=== PATIENT | male | born 1980 | race Caucasian/White ===

== ENCOUNTER 2018-01-02 16:18 | Emergency (ER) | payer MEDICAID, SELFPAY ==
[2018-01-02 16:19] VITALS: BP 147/106; PULSE 103; RESP 16; TEMP 36.7; O2SAT 98; BMI 38.0
--- NOTE | 2018-01-02 16:31 | RAD_ITS ---
STUDY: X-RAY - LUMBAR SPINE REASON FOR EXAM: Male, 37 years old. Pain after fall TECHNIQUE: Three view(s) of the lumbar spine were obtained. COMPARISON: None FINDINGS: Normal lumbar lordosis. There is no significant scoliosis. There is normal alignment of the vertebrae. The vertebral bodies show no significant abnormalities. Vertebral body heights are maintained. There are no significant disc abnormalities. The soft tissues are unremarkable. RAD/Lumbar Spine 2 or 3 Views IMPRESSION: No acute abnormalities are seen in the lumbar spine. There are no compression fractures. Electronically Signed: Delia Escudero MD at 20:34 EST Tel Direct: [phone], Service support ,
--- NOTE | 2018-01-02 16:32 | RAD_ITS ---
STUDY: X-RAY - SACRUM/COCCYX REASON FOR EXAM: Male, 37 years old. Pain status post fall TECHNIQUE: 4 view(s) of the sacrum and coccyx were obtained. COMPARISON: None. FINDINGS: Normal bilateral sacroiliac joints. Normal visualized sacral ala and fused sacral bodies. Normal sacrococcygeal junction with a normal angulation. Normal coccygeal segments. There is visualized mild degenerative changes in the lower lumbar spine. The presacral soft tissue structures are unremarkable. RAD/Sacrum-Coccyx min 2 Views IMPRESSION: Normal x-rays of the sacrum and coccyx. Electronically Signed: Keerthi Hodges MD at 21:28 EST Tel , Service support ,
[2018-01-02] MEDS: Ketorolac 30 MG/ML Syringe 60 MG IM (16:37)
--- NOTE | 2018-01-02 17:00 | ED.DCSUM_ITS ---
- ER Visit Summary Date of Service: 01/02/18 Chief Complaint: Back pain History of Present Illness: The patient is a [address] Dia. He reports that yesterday he slipped and fell. He landed on his buttocks. Reports that he has a sharp pain in his lower back that is 10 out of 10 with sitting and standing from a sitting position. It is 7 out of 10 when he is standing. There is no relation to his legs. No numbness or weakness in his legs. No problems with his bowels or his bladder. No groin numbness. He denies any blow to the head or loss of consciousness. He denies any other injuries. Physical Examination: Vitals: Stable. Afebrile. General: A&O x 3. NAD. Cardiovascular exam: Regular rate and rhythm, no murmur, rub or gallop. Respiratory exam: Clear to auscultation bilaterally. No wheezes or stridor. Abdominal exam: Soft, nontender, nondistended, normal bowel sounds. No peritoneal signs. Back: Diffuse moderate tenderness to palpation over the lumbar spine and the paraspinous musculature in the lumbar region. No point tenderness. Negative straight leg bilaterally. 5/5 DF, PF, EHL bilaterally. Normal sensation to light touch throughout. Extremity: No clubbing, cyanosis, or edema. Test Results: X-rays of his LS spine and sacrum show no acute disease. Emergency Department Course and Treatment: Patient was treated with Toradol and is resting comfortably. Treatment Plan: An [facility] report was obtained which shows only had 2 prescriptions for opiates in the past year. He will be discharged with naproxen and [employer]. Instructed to follow-up Dr. Dia in 1 week if not improving. Return to the emergency department for any worsening symptoms. Disposition: To home in improved and stable condition. Impression: 1. Coccygeal contusion. 2. Low back pain, acute. 3. Fall. This note was generated with [employer] dictation software. It may contain incorrect words, spelling, and punctuation that were not noted in review of the chart prior to signing ED Disposition - Plan for ED Patient: Disposition: Home or Assisted Living Chief Complaint: Back Instructions: ED Contusion Sacrum Coccyx Prescriptions: Hydrocodone Bitart/Apap 5-325 [[employer] 5/325] 1 - 2 tablet PO Q4H PRN PRN 3 Days # 20 tablet PRN Reason: Pain Naproxen [Naprosyn] 500 mg PO BID #20 tablet Referrals: Lupillo Dia MD [Primary Care Provider] - 1 Week if not improving
[2018-01-02 17:10] VITALS: BP 140/89; PULSE 79; RESP 16; O2SAT 100
--- NOTE | 2018-01-02 17:10 | ED.RN ---
THIS NURSE REVIEWED D/C INSTRUCTIONS WITH PT. PT VERBALIZED UNDERSTANDING OF INSTRUCTIONS. PT DENIES FURTHER NEEDS OR QUESTIONS AT THIS TIME. PT AMBULATES FROM ROOM ON OWN WITHOUT ASSISTANCE FROM STAFF
== END 2018-01-02 17:12 | disposition home or self-care (01) ==
LOC: ED 16:42
PROVIDERS: Emergency Provider Emergency Medicine; Family Provider Family Medicine; PCP Family Medicine
DX: S30.0XXA Contusion of lower back and pelvis, initial encounter (principal); M54.5 Low back pain; W01.0XXA Fall on same level from slipping, tripping and stumbling without subsequent striking against object, initial encounter; Y93.9 Activity, unspecified; Y92.9 Unspecified place or not applicable; Z86.711 Personal history of pulmonary embolism; I83.90 Asymptomatic varicose veins of unspecified lower extremity; Z87.442 Personal history of urinary calculi
CPT/HCPCS: 72100; 72220; 96372; 99282

== ENCOUNTER 2020-02-15 14:28 | Inpatient (IN) | payer MEDICAID, SELFPAY ==
[2020-02-15] VITALS (7 sets, daily range): BP systolic 114–133; BP diastolic 72–97; PULSE 65–93; RESP 15–18; TEMP 36.3–36.9; O2SAT 94–98; BMI 36.4; BMI 35.4
[2020-02-15 14:58] LABS: Absolute Lymphocyte Count 1.74 X10^3/uL (0.83-4.51); Absolute Neutrophil Count 6.5 X10^3/uL (2.0-7.7); Basophil# 0.05 X10^3/uL; Basophil% 0.6 % (0-1); Eosinophil# 0.19 X10^3/uL; Eosinophils% 2.1 % (0-5); Hematocrit 48.2 % (40-54); Hemoglobin 16.4 g/dL (13.0-16.5); Lymphocyte # 1.74 X10^3/ul (4.0); Lymphocyte % 19.3 % (19-41); Mean Corpuscular Volume 85.3 fL (80-94); Mean Platelet Vol. 9.2 fl (6.2-12.0); Monocyte# 0.52 X10^3/uL; Monocyte% 5.8 % (0-10); NRBC Flagged by Analyzer 0 % (0-5); Neutrophil # 6.51 X10^3/uL (2.7-7.7); Platelet Count 269 K/mm3 (150-450); RBC Distribution Width CV 13.2 % (11.6-14.6); RBC Distribution Width SD 40.4 fl (35.1-43.9); Red Blood Count 5.65 M/mm3 (4.6-6.2)
[2020-02-15] MEDS: Rivaroxaban 15 MG Tablet PO (15:02)
[2020-02-15 15:08] LABS: Anion Gap 8 (5-15); BUN 9 mg/dL (7-18); BUN/Creat Ratio 11.4 RATIO (10-20); Chloride 107 mmol/L (98-107); Creatinine, Serum 0.79 mg/dL (0.70-1.30); EST Glomerular Filtration Rate 115 mL/min (>60); Est Glom Filt Rate - Afr Amer 139 mL/min (>60); Estimated Creatinine Clearance 119.05 ml/min; Glucose 134 mg/dL (74-106); Sodium Level 141 mmol/L (136-145)
[2020-02-15 15:09] LABS: Bacteria 0 SEEN /hpf (None Seen); Mucous, Urine 0 SEEN /hpf (<or=2+); Red Blood Cells-Urine 0 SEEN /hpf (0-5); White Blood Cells 0 SEEN /hpf (0-5)
[2020-02-15 15:11] LABS: Color, Urine Yellow (Yellow); Glucose, Dipstick Normal (Normal); Ketone-Dipstick Negative (Negative); Leukocyte Esterase-Dipstick Negative /ul (Negative); Nitrite-Dipstick Negative (Negative); Occult Blood-Urine Negative /ul (Negative); Protein-Dipstick 15 mg/dl (Negative); Specific Gravity, Urine 1.015 (1.002-1.030); Urine Bilirubin Dipstick Negative (Negative); Urine Clarity Sl. Cloudy (Clear); Urine Urobilinogen 4 mg/dl (Normal)
--- NOTE | 2020-02-15 15:14 | ED.DCSUM_ITS ---
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 States that there was 2 events today he had one yesterday with urine incontinence. Reported that he was postictal and lethargic, currently returning back to normal. He denies any cough or urine symptoms. No recent vomiting or diarrhea. Reports he was just discharged from [facility] after 3-day stay being discharged 2 days ago for similar. He states he was not started on any seizure medicines. From his discharge papers there was noted near syncope and anxiety, he was started on hydroxyzine. History of PTSD, was started on antidepressants by his PCP 6 weeks ago. He states he was a drinker and smoker up to 6 weeks ago. Denies any tongue biting or any incontinence of urine or stool today. Reported there was tonic-clonic activity x2 witnessed by significant other. She is currently not present. In addition patient reports prior to his hospitalization he will went to their ED had a work-up for shortness of breath rule out PE with a CT of the chest due to elevated d-dimer. He had PE 2 to 3 years ago on 6 months of anticoagulant therapy. He reports he was sent yesterday for an outpatient ultrasound of his right leg which returned positive for DVT, from records was popliteal region he was started on Xarelto with a starter pack. He states he did not take this morning's dose. I was able to obtain records through [employer], he had a CT head on February 10 that was negative due to headaches. He was worked up for syncopal episode that was negative. He was admitted in the hospital with echocardiogram. He was monitored. He was discharged with outpatient follow-up with hydroxyzine to help with his anxiety. There was no MRI studies or EEGs from discharge summary. He did report he had similar episodes prior to the initial hospitalization with seizure activity. Prior similar symptoms: Yes Past Medical History - Allergies and Home Meds Allergies/Adverse Reactions: Allergies coconut Allergy (Verified 02/15/20 14:32) PT UNSURE OF REACTION Primary Care Physician: Lupillo Dia MD [Primary Care Provider] - Past Medical History: - - PTSD, anxiety, right lower extremity DVT Smoking Status: Never smoker Review of Systems General: Denies: Chills, Fever, Sweats Eyes: Denies: Visual changes - bilaterally, Diplopia ENT: Denies: Rhinorrhea, Sore throat Cardiovascular: Denies: Chest pain, Palpitations Respiratory: Denies: Dyspnea, Cough, Dyspnea on exertion Gastrointestinal: Denies: Abdominal pain, Nausea, Vomiting, Diarrhea, Melena, Hematochezia Genitourinary: Denies: Dysuria, Hematuria, Frequency Musculoskeletal: Denies: Back pain, Extremity Pain Skin: Denies: Rash, Wounds Neurological: Denies: Headache, Weakness, Numbness Physical Exam Vital Signs/Narrative: Vital Signs Temp Pulse Resp BP Pulse Ox 02/15/20 14:29 97.9 F 87 15 133/97 H 95 Inital Vital Signs reviewed: Yes General: Well nourished, Well developed, No Acute Distress, - - Slightly confused Head: Normocephalic, Atraumatic, - - No tongue laceration or abrasion Eyes: Perrl, EOMI ENT: Moist mucous membranes, No rhinorrhea Neck: Supple, Nontender Cardiovascular: Regular rate, Regular rhythm, No murmurs Respiratory: No distress, CTA bilaterally, Chest nontender Abdomen: Soft, Nontender, Nondistended, Normal bowel sounds Back: Nontender, Normal Inspection Extremities: Nontender, No edema Skin: Normal color, No rash Neurological: Alert, Oriented x3, Cranial nerves II-XII grossly intact, Normal Strength, Normal Sensation Psychological: Normal affect, Normal Mood Diagnostic/Tx/Re-eval Abnormal Lab Results 02/15/20 02/15/20 02/15/20 14:50 14:50 14:55 WBC 9.0 RBC 5.65 Hgb 16.4 Hct 48.2 MCV 85.3 MCH 29.0 MCHC 34.0 RDW Std Deviation 40.4 RDW Coeff of [place] 13.2 Plt Count 269 MPV 9.2 Immature Gran % (Auto) 0.200 Neut % (Auto) 72.0 H Lymph % (Auto) 19.3 [place] % (Auto) 5.8 Eos % (Auto) 2.1 Baso % (Auto) 0.6 Absolute Neuts (auto) 6.5 Absolute Lymphs (auto) 1.74 Nucleated RBC % 0 Sodium 141 Potassium 4.0 Chloride 107 Carbon Dioxide 26.0 Anion Gap 8 BUN 9 Creatinine 0.79 Estim Creat Clear Calc 119.05 Est GFR (MDRD) Af Amer 139 Est GFR (MDRD) Non-Af 115 BUN/Creatinine Ratio 11.4 Glucose 134 H Calcium 9.0 Urine Color Yellow Urine Clarity Sl. Cloudy Urine pH 8.0 Ur Specific [place] 1.015 Urine Protein 15 H Urine Glucose (UA) Normal Urine Ketones Negative Urine Occult Blood Negative Urine Nitrite Negative Urine Bilirubin Negative Urine Urobilinogen 4 H Ur Leukocyte Esterase Negative Urine RBC 0 SEEN Urine WBC 0 SEEN Ur Squamous Epith Cells 0-5 SEEN Urine Bacteria 0 SEEN Urine Mucus 0 SEEN Ur Drug Screen Comment 02/15/20 14:55 WBC RBC Hgb Hct MCV MCH MCHC RDW Std Deviation RDW Coeff of [place] Plt Count MPV Immature Gran % (Auto) Neut % (Auto) Lymph % (Auto) [place] % (Auto) Eos % (Auto) Baso % (Auto) Absolute Neuts (auto) Absolute Lymphs (auto) Nucleated RBC % Sodium Potassium Chloride Carbon Dioxide Anion Gap BUN Creatinine Estim Creat Clear Calc Est GFR (MDRD) Af Amer Est GFR (MDRD) Non-Af BUN/Creatinine Ratio Glucose Calcium Urine Color Urine Clarity Urine pH Ur Specific [place] Urine Protein Urine Glucose (UA) Urine Ketones Urine Occult Blood Urine Nitrite Urine Bilirubin Urine Urobilinogen Ur Leukocyte Esterase Urine RBC Urine WBC Ur Squamous Epith Cells Urine Bacteria Urine Mucus Ur Drug Screen Comment - Medical Decision Making Patient is vital signs stable, currently returning to baseline, initially slightly confused however reevaluation he feels back to normal. Did report stop smoking and drinking 6 weeks ago, therefore not likely any withdrawal seizure activities. After obtaining records from for review through [facility], appears he had a syncopal work-up, had a head CT in the ED that was negative. I did not obtain another brain imaging in the ED. I did obtain basic labs urine and tox screen labs are all normal urine without infection. Tox screen is pending. I did speak with telemetry neurologist as a consult she evaluated the patient. She recommended EEG as an inpatient for further evaluation. She recommended withholding antiepileptics until EEG is obtained to not suppress any testing. She recommended MRI of the brain with and without contrast for further evaluation. Seizure precautions. I discussed with hospitalist, Dr. Almanza, will admit for further management. Patient was given his scheduled dose of Xarelto due to his diagnosis right lower extremity DVT. ED Disposition - Plan for ED Patient: Disposition: Acute Care Hospital [facility] Diagnosis: Seizure, Right leg DVT Referrals: Lupillo Dia MD [Primary Care Provider] -
[2020-02-15 15:16] LABS: Squamous Epithelial Cells - UA 0-5 SEEN /hpf (0-5)
--- NOTE | 2020-02-15 16:32 | PCM.HP.STD ---
Problem List (1) Seizure Status: Acute (2) Right leg DVT Status: Acute (3) Alcoholism Status: Chronic (4) Obesity Status: Chronic (5) Nicotine abuse Status: Chronic (6) PTSD (post-traumatic stress disorder) Status: Chronic History of Present Illness Date of Admission: 02/15/20 Chief Complaint: seizure The patient is a 39 year old M with pmhx of alcoholism, nicotine abuse, PTSD, marijuana abuse, recent acute DVT, prior PE, obesity, who presented to the ER with c/o seizure. He has been having episodes since . 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 He caught his bearing and drove himself to the [facility]. He had an elevated D dimer and a CTA but no PE. He was sent home. On Friday morning he woke up but could not get out of bed. His family came to help and found him unconscious face down on the floor shaking. He went to [facility] ER again, and got admitted. They worked him up for syncope, CT brain negative, and he was discharged on meclizine for vertigo. He went home and later had an outpatient RLE venous duplex showing DVT and was started on xarelto. On Friday passed out at home twice. Then overnight he woke up after going to bed and had loss control of his bladder. Today he passed out and was picked up by family and put in a chair, where he had all over body shaking. He came to the ER and was felt to have seizure. He feels somewhat lethargic and has RLE pain. He reports he was an alcoholic and stopped drinking 6 weeks ago. He was drinking moonshine, enough to get him drunk (shitfaced) everyday for 1 and a half years. He was also smoking marijuana until 6 weeks ago. He has PTSD, was formerly on ativan, but now only on vistaril prn. He uses nicotine (dip), approximately 1.5 cans daily. [] Past Medical History Past Medical History (Chronic Problems): Chronic Problems Alcoholism (Chronic) Obesity (Chronic) Nicotine abuse (Chronic) PTSD (post-traumatic stress disorder) (Chronic) Allergies coconut Allergy (Verified 02/15/20 14:32) PT UNSURE OF REACTION Home Medications: Ambulatory Orders Medication Instructions Recorded Fluoxetine [Prozac] 20 mg PO DAILY 02/15/20 Hydroxyzine HCl 25 mg PO TID PRN 02/15/20 Meclizine HCl 25 mg PO TID PRN 02/15/20 Rivaroxaban [Xarelto] 15 mg PO BID 02/15/20 Surgical History: - - ankle pins Psychiatric History: Anxiety, Post traumatic stress Lives: With Family Smoking Status: Never smoker Tobacco Use: Chew Alcohol: Sober - alcoholic quit 6 weeks ago Drugs: Marijuana - *Family History Maternal History Items: Unknown - adopted Paternal History Items: Unknown - adopted Review of Systems Constitutional: Denies: Chills, Fever, Weight Change HEENT: Denies: Head Aches, Sinus Congestion, Sinus Drainage Cardiovascular: Reports: Syncope. Denies: Chest Pain, Palpitations Respiratory: Denies: Cough, Shortness of breath at rest, Sputum production Gastrointestinal: Denies: Abdominal Pain, Nausea, Vomiting Genitourinary: Denies: Dysuria Musculoskeletal: Denies: Joint Pain, Joint Tenderness Skin: Denies: Rash, Wounds Neurological: Reports: Seizures. Denies: Focal weakness, Numbness, Tingling Psychiatric: Denies: Anxiety, Depression, Homicidal Ideations, Suicidal Ideations Hematologic/ Lymphatic: Denies: Easy Bruising, Easy Bleeding VTE Information - Inpt Only VTE Present on Admission: No VTE Mechan Device Prophylaxis: None VTE Pharm Prophylaxis ordered?: Yes Patient Problems: Active and Suspected Problems Seizure (Acute) Right leg DVT (Acute) - Physical Exam Vitals/I&O's: Vital Signs Temp Pulse Resp BP Pulse Ox 98.4 F 84 15 124/80 H 98 02/15/20 16:08 02/15/20 16:08 02/15/20 16:08 02/15/20 16:08 02/15/20 16:08 Oxygen Delivery Method Room Air Weight: 239 lb 13.807 oz Body Mass Index (BMI) 36.4 General: Alert, Oriented x3, Cooperative HEENT: Atraumatic, PERRLA, EOMI, Normocephalic Neck: Supple, No JVD, Negative Carotid Bruits Lungs: Clear to auscultation, Normal air movement Cardiovascular: Regular rate, No murmurs Abdomen: Bowel Sounds Present, Soft, Non Tender Extremities: No edema, Capillary Refill Less than 3 Seconds Skin: No rashes, No breakdown Musculoskeletal: No Tenderness to Palpation of Joints or Extremities, - - + david sign RLE Neurological: Cranial nerves II-XII grossly intact Psych/Mental Status: Normal Affect, Appropriate Laboratory Results 02/15/20 14:50: WBC 9.0, RBC 5.65, Hgb 16.4, Hct 48.2, MCV 85.3, MCH 29.0, MCHC 34.0, RDW Std Deviation 40.4, RDW Coeff of [place] 13.2, Plt Count 269, MPV 9.2, Immature Gran % (Auto) 0.200, Neut % (Auto) 72.0 H, Lymph % (Auto) 19.3, [place] % (Auto) 5.8, Eos % (Auto) 2.1, Baso % (Auto) 0.6, Absolute Neuts (auto) 6.5, Absolute Lymphs (auto) 1.74, Nucleated RBC % 0 02/15/20 14:50: Sodium 141, Potassium 4.0, Chloride 107, Carbon Dioxide 26.0, Anion Gap 8, BUN 9, Creatinine 0.79, Estim Creat Clear Calc 119.05, Est GFR (MDRD) Af Amer 139, Est GFR (MDRD) Non-Af 115, BUN/Creatinine Ratio 11.4, Glucose 134 H, Calcium 9.0 02/15/20 14:55: Urine Color Yellow, Urine Clarity Sl. Cloudy, Urine pH 8.0, Ur Specific [place] 1.015, Urine Protein 15 H, Urine Glucose (UA) Normal, Urine Ketones Negative, Urine Occult Blood Negative, Urine Nitrite Negative, Urine Bilirubin Negative, Urine Urobilinogen 4 H, Ur Leukocyte Esterase Negative, Urine RBC 0 SEEN, Urine WBC 0 SEEN, Ur Squamous Epith Cells 0-5 SEEN, Urine Bacteria 0 SEEN, Urine Mucus 0 SEEN 02/15/20 14:55: Urine Opiates Screen Pending, Urine Methadone Screen Pending, Ur Barbiturates Screen Pending, Ur Phencyclidine Scrn Pending, Ur Amphetamines Screen Pending, U Methamphetamin-MDMA Pending, U Benzodiazepines Scrn Pending, Urine Cocaine Screen Pending, U Cannabinoids Screen Pending, Ur Drug Screen Comment Assessment/Plan All Active Problems Seizure (Acute) Right leg DVT (Acute) 1. Syncope, seizure - multiple syncopal episodes over the past week sometimes having shaking episodes. Post ictal phases only last a few minutes. one time loss of bowel but this occurred after he went to bed for the night so unclear if there was an associated seizure. -Neuro consulted in ER recommended EEG prior to starting seizure meds. -He was worked up in [facility] recently and diagnosed with syncope and vertigo started on meclizine. Obtain records. CT brain negative at that time. -Obtain MRI brain with and without contrast. -alcoholic, states he quit 6 weeks ago, with seizures i am concerned he may still be drinking over having withdrawal seizures. he was also drinking moonshine that was homemade so he may have been drinking contaminated liquid. Check EtOH level, and check methanol level. -tox screen pending -prn ativan for seizure 2. RLE DVT, prior PE - started on xarelto. ongoing RLE pain, tenderness. 3. PTSD, anxiety - formerly on ativan. now only on vistaril. Continue prozac. 4. Alcoholism - CIWA protocol. Drinking homemade moonshine unspecified amount but enough to get him shitfaced every day for a year and a half. Supposedly 5. Marijuana abuse - tox screen pending 6. Nicotine abuse - patch. dips 1.5 cans daily. DVT ppx: xarelto This patient was seen by Narendra Starr PA-C under the supervision of Dr. Almanza.
[2020-02-15 16:37] LABS: Amphetamine Urine VISTA NEGATIVE (<1000 ng/mL); Barbiturate Urine VISTA NEGATIVE (< 200 ng/mL); Benzodiazepine Urine VISTA NEGATIVE (< 200 ng/mL); Cocaine Urine VISTA NEGATIVE (< 300 ng/mL); Ecstacy Urine VISTA NEGATIVE (< 500 ng/mL); Methadone Urine VISTA NEGATIVE (< 300 ng/mL); PCP Urine VISTA NEGATIVE (< 25 ng/mL); THC Urine VISTA NEGATIVE (< 50 ng/mL); Vista UDS pH Range 7
--- NOTE | 2020-02-15 17:49 | MRI_ITS ---
STUDY: MRI BRAIN WITH AND WITHOUT CONTRAST REASON FOR EXAM: Male, 39 years old. New seizure onset. TECHNIQUE: Standardized multiplanar fat and water weighted pulse sequences were obtained. 20ml Dotarem via IV was administered for the contrast portion of the examination. COMPARISON: None. FINDINGS: Normal size of the ventricles and extra-axial spaces for the patient''s age. Normal white matter tracts of the supratentorial brain. Normal bilateral basal ganglia. Normal thalami. There is no extra-axial fluid accumulation. Normal flow voids within the major intracranial circulation suggesting patency by spin echo criteria. Normal venous enhancement. There is a very tiny well marginated rounded nodular area of enhancement peripherally in the left frontal parietal region measuring approximately 4.3 x 3.5 mm without appreciable edema or mass effect.. This could represent a slightly prominent vessel, tiny meningioma or metastasis. This is difficult to say with certainty in part due to the fact that the lesion is not visualized on all pulse weighted imaging sequences due to volume averaging secondary to relatively thick cuts.. Would recommend limited repeat study with thinner cuts through this area. Normal sella turcica, pituitary gland, infundibular stalk, optic chiasm and hypothalamus. Normal tectal plate and pineal gland. Normal midbrain, sommer and medulla. Normal cerebellum. Normal basal cisterns. Normal bilateral temporal bones. Normal bilateral internal auditory canals. No demonstrated orbital abnormality, within the constraints of a routine brain study. Normal visualized paranasal sinuses. 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 Normal visualized upper cervical spine. MRI/Brain W/WO Contrast IMPRESSION: Tiny nonspecific focal area of nodular enhancement in left frontal parietal region of indeterminate etiology and clinical significance. Would recommend limited repeat study without contrast utilizing thinner cuts through this area for further assessment. 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 Clinical correlation recommended Electronically Signed: Cornel Hess MD at 19:57 EDT , Service support ,
[2020-02-15 18:17] LABS: Magnesium 2.1 mg/dL (1.6-2.6); Phosphorus 2.5 mg/dL (2.5-4.9)
[2020-02-15] MEDS: hydrOXYzine PAM 25 MG Capsule PO (18:45)
[2020-02-15] MEDS: 0.9% Saline Lock 10 ML Syringe IV (20:01)
[2020-02-15] MEDS: 0.9% Normal Saline 1,000 ML 125 ML IV (20:01)
[2020-02-15] MEDS: Thiamine Hydrochloride 100 MG Tablet PO (20:01)
[2020-02-16] VITALS (11 sets, daily range): BP systolic 107–158; BP diastolic 66–94; PULSE 64–99; RESP 16–18; TEMP 36.3–37.1; O2SAT 94–99
[2020-02-16] MEDS: 0.9% Normal Saline 1,000 ML 125 ML IV ×2 (03:25→11:30)
[2020-02-16 05:57] LABS: Absolute Lymphocyte Count 1.85 X10^3/uL (0.83-4.51); Absolute Neutrophil Count 3.5 X10^3/uL (2.0-7.7); Basophil# 0.04 X10^3/uL; Basophil% 0.7 % (0-1); Eosinophil# 0.22 X10^3/uL; Eosinophils% 3.6 % (0-5); Hematocrit 45.2 % (40-54); Hemoglobin 15.2 g/dL (13.0-16.5); Lymphocyte # 1.85 X10^3/ul (4.0); Lymphocyte % 30.1 % (19-41); Mean Corp Hgb Conc 33.6 g/dL (32-36); Mean Corpuscular Hgb 29.2 pg (27.0-32.0); Mean Corpuscular Volume 86.8 fL (80-94); Mean Platelet Vol. 9.1 fl (6.2-12.0); Monocyte# 0.49 X10^3/uL; NRBC Flagged by Analyzer 0 % (0-5); Neutrophil # 3.54 X10^3/uL (2.7-7.7); Neutrophil % 57.4 % (47-70); Platelet Count 215 K/mm3 (150-450); RBC Distribution Width CV 13.1 % (11.6-14.6); Red Blood Count 5.21 M/mm3 (4.6-6.2); White Blood Count 6.2 K/mm3 (4.4-11.0)
[2020-02-16 06:21] LABS: ALB/GLOB Ratio 1.2 RATIO (0.9-2.4); AST(SGOT) 21 U/L (15-37); Alanine Aminotransfer ALT/SGPT 55 U/L (16-61); Albumin, Serum 3.3 g/dL (3.2-5.0); Alkaline Phosphatase 65 U/L (45-117); Anion Gap 7 (5-15); BUN 9 mg/dL (7-18); BUN/Creat Ratio 11.2 RATIO (10-20); Calcium,Total 8.5 mg/dL (8.5-10.1); Chloride 109 mmol/L (98-107); EST Glomerular Filtration Rate 112 mL/min (>60); Est Glom Filt Rate - Afr Amer 136 mL/min (>60); Estimated Creatinine Clearance 117.56 ml/min; Globulin 2.7 g/dL (2.2-4.2); Glucose 98 mg/dL (74-106); Sodium Level 143 mmol/L (136-145)
--- NOTE | 2020-02-16 06:51 | NURSING ---
This RN was called to patient room by HIWOT Valenzuela. TUMBLER PLATER Burak and knitting demonstratorAlvaro present at bedside.. Stated patient had muscle twitching and was not responding lasting about one minute. VS obtained, patient alert and oriented to person, place and time. Was not incontinent of urine or stool. EEG scheduled for this AM.
[2020-02-16] MEDS: Multivitamins,Ther W-Minerals Tablet 1 TABLET PO (08:44)
[2020-02-16] MEDS: FLUoxetine 20 MG Capsule PO (08:45)
[2020-02-16] MEDS: Folic Acid 1 MG Tablet PO (08:45)
[2020-02-16] MEDS: Rivaroxaban 15 MG Tablet PO ×2 (08:45→17:04)
[2020-02-16] MEDS: Thiamine Hydrochloride 100 MG Tablet PO (08:45)
[2020-02-16 09:00] LABS: Hemoglobin A1c 5.1 % (4.2-6.3)
[2020-02-16] MEDS: Ibuprofen 400 MG Tablet 800 MG PO (09:48)
--- NOTE | 2020-02-16 09:54 | NURSING ---
Entered patient room at 0950 to pass PRN ibuprofen and found patient on L side, eyes closed with legs/arm muscles twitching. Patient at this time was unresponsive to name and sternal rubbing. Lasted around 1 minute. Patient opened eyes and claimed to be hot with 2/10 headache. CIWA 2. VSS. A&Ox3. PRN ibuprofen passed. Will alert hospitalist of episode.
--- NOTE | 2020-02-16 11:05 | CASEMGMT ---
HIWOT RAMIREZ assessment: Face to Face with patient for initial transition planning/care coordination assessment. HIWOT RAMIREZ introduced self and role at [facility], pt voices understanding and consents to assessment at this time. Pt is lying in bed in no distress at this time. Pt is A/Ox4 at this time and answers all questions appropriately at this time. Care providers, pharmacy, and demographics verified/updated at this time. Presentation: Had seizure last and was admitted [facility]-d/c'd friday-more seizure activity today Admitting dx: New onset seizure PCP: [facility] Specialists: [facility] vascular Preferred [facility]acy: [facility] Insurance: [employer] Prescription Benefit: CRS, pt was recently given script for Xarelto but had not picked up yet. Living Will/HPOA: Pt states does not have LW/HPOA but is interested in completing HPOA at this time. Mati SW aware, voices understanding. LNOK: Prachi Snow, sig other; Ember José, mother Living Arrangements: Pt states lives with 15yo son in mobile home and states no concerns at home at this time. Pt states is independent with ADL's. Transportation: Pt states drives self normally but is aware that he will not be able to drive for awhile. Pt states no further transportation concerns at this time. DME/HHC: Pt states no current DME or need for any at this time. Pt states no hx of HHC or SNF in the past. Pt states no concerns with going home at this time. 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 Pt states does not smoke and states quit drinking ETOH/smoking marijuana 6weeks ago and states has had none since. Pt states no further concerns/needs at this time. CM to follow for any further discharge planning/needs. Advised pt to ask for CM if any further questions/concerns/needs arise, voices understanding. Pt Goal: Home Plan[place] HIWOT RAMIREZ
--- NOTE | 2020-02-16 13:14 | CASEMGMT ---
SW completed a [employer] with patient per his request. Copies were made and given to patient along with originals. A copy was also placed in the chart. Kavitha MORFIN
--- NOTE | 2020-02-16 16:18 | DCINST_ITS ---
- Discharge Diagnoses Current Active Problems: Current Active and Chronic Problems Seizure (Acute) Right leg DVT (Acute) Alcoholism (Chronic) Obesity (Chronic) Nicotine abuse (Chronic) PTSD (post-traumatic stress disorder) (Chronic) You will use the following diet at home:: Regular Your food should be the consistency of: Regular Discharge Activity: May Not Drive Weight Bearing Status: Full weight bearing Call your doctor if you observe: Fever of 101 or Higher, Shortness of breath, Dizziness, Fainting spells, Chest pain, Increased palpitations (irregular heartbeat), Uncontrolled pain Allergies/Adverse Reactions: Allergies coconut Allergy (Verified 02/15/20 14:32) PT UNSURE OF REACTION Medications to take at Discharge Fluoxetine [Prozac] 20 mg PO DAILY 02/15/20 Hydroxyzine HCl 25 mg PO TID PRN 02/15/20 Meclizine HCl 25 mg PO TID PRN 02/15/20 Rivaroxaban [Xarelto] 15 mg PO BID 02/15/20 Primary Care Physician: Lupillo Dia MD [Primary Care Provider] - Please follow up with your Primary Care Physician in: 1 week. Test Results: Test results from this visit will be discussed in further detail at your follow- up appointment, if applicable.
--- NOTE | 2020-02-16 16:21 | DS.PCM_ITS ---
Discharge Date and Diagnosis - Problem List Patient Problems: Active and Suspected Problems Seizure (Acute) Right leg DVT (Acute) Date of Admission: 02/15/20 Date of Discharge: 02/16/20 - Primary Discharge Diagnosis Active and Suspected Problems #1 suspected seizure, EEG was normal, no antiseizure medication started. #2 recent history of right lower extremity DVT. - Secondary Discharge Diagnosis Chronic Problems Alcoholism (Chronic) Obesity (Chronic) Nicotine abuse (Chronic) PTSD (post-traumatic stress disorder) (Chronic) Hospital Course and Treatment Imaging Results: Clinical Impression(s) from Imaging Studies Brain MRI 02/15/20 17:49 IMPRESSION: Tiny nonspecific focal area of nodular enhancement in left frontal parietal region of indeterminate etiology and clinical significance. Would recommend limited repeat study without contrast utilizing thinner cuts through this area for further assessment. 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 Clinical correlation recommended Electronically Signed: Cornel Hess MD at 19:57 EDT , Service support , Tele-neurology consult. Operations: None Procedures: None Summary of Care Provided: The patient is a 39 year old M presented to the emergency room because of reported what seems to be seizure. Those episodes start with lightheadedness and dizziness as well as twitching and patient kind of loses consciousness. Patient did mention that he passes out after each episode of those twitching and dizziness. Recently, he was admitted to [facility] and he had extensive work-up for syncope including echocardiogram, CT head and both were negative. He was found to have right lower extremity DVT and he was started on Xarelto. His routine blood work was unremarkable. Lipase and TSH was normal. Urinalysis showed no evidence of acute infection. Urine drug screen was negative. Blood alcohol level was 4. Patient stated that he did not drink alcohol for 6 weeks and he did not use any drugs recently. Tele-neurology consult obtained and recommended EEG and MRI brain with and without contrast. MRI brain with and without contrast revealed tiny nonspecific focal area of nodular enhancement in the left frontal parietal region of indeterminate etiology and clinical signif icance. EEG performed and it was normal. During the EEG and according to the customer support technician, patient had an episode of staring, not answering questions and he attended back to normal quickly. Reevaluation by tele-neurology requested and the doctor mentioned that EEG was normal even during that episode when patient was staring during doing the EEG. He did not recommend to start patient on antiseizure medications. It is not clear what is causing this patient's complaints and symptoms. Work-up for syncope was performed at [facility] and was unremarkable reportedly. MRI brain and EEG performed here in this hospital and showed no evidence of seizure activity or brain abnormalities. Tele-neurology recommended 24 hours EEG monitoring. Patient discharged home in a stable medical condition, no antiseizure medication started, discharged on his previous home medications without any changes including Xarelto, recommended to follow-up with PCP in 1 week and referral to [facility] Main [place] for 24 hours EEG monitoring. Patient Problems: Active and Suspected Problems Seizure (Acute) Right leg DVT (Acute) - Physical Exam Vitals/I&O's: Vital Signs Temp Pulse Resp BP Pulse Ox 98 F 88 16 158/73 H 94 02/16/20 13:28 02/16/20 15:04 02/16/20 13:28 02/16/20 13:28 02/16/20 13:28 Oxygen Delivery Method Room Air Weight: 232 lb 9.614 oz Body Mass Index (BMI) 35.4 Intake and Output for Last 24 Hours 02/14/20 02/15/20 02/16/20 23:59 23:59 23:59 Intake Total 695.83 / 695.83 1729.17 / 1729.17 Output Total 300 / 300 825 / 825 Balance 395.83 / 395.83 904.17 / 904.17 General: Alert, Oriented x3, Cooperative, No apparent distress HEENT: Atraumatic, PERRLA, EOMI, Normocephalic Oral: Moist Mucosa, No Gingival or Mucosal Lesions/ Ulcerations Neck: Supple, No JVD, Negative Carotid Bruits, Trachea Midline, Thyroid Normal Size and Texture Lungs: Clear to auscultation, Normal air movement, No rhonchi, No wheeze, No rales Cardiovascular: Regular rate, Regular Rhythm, Normal S1, Normal S2, PMI Normal Abdomen: Bowel Sounds Present, Soft, Non Tender, Non-Distended, No Hepato- splenomegaly Extremities: No clubbing, No cyanosis, No edema Skin: No rashes, No breakdown Lymphatic: No Cervical, Supraclavicular, or Inguinal Adenopathy Neurological: Cranial nerves II-XII grossly intact, Neuro grossly intact Psych/Mental Status: Normal Affect, Appropriate Laboratory Results 02/15/20 14:50: Phosphorus 2.5, Magnesium 2.1, TSH 1.10 02/15/20 14:50: Ethyl Alcohol 4.0 02/15/20 14:55: Urine Opiates Screen NEGATIVE, Urine Methadone Screen NEGATIVE, Ur Barbiturates Screen NEGATIVE, Ur Phencyclidine Scrn NEGATIVE, Ur Amphetamines Screen NEGATIVE, U Methamphetamin-MDMA NEGATIVE, U Benzodiazepines Scrn NEGATIVE, Urine Cocaine Screen NEGATIVE, U Cannabinoids Screen NEGATIVE 02/15/20 18:35: Methyl Alcohol, Quant Pending 02/16/20 05:42: WBC 6.2, RBC 5.21, Hgb 15.2, Hct 45.2, MCV 86.8, MCH 29.2, MCHC 33.6, RDW Std Deviation 41.0, RDW Coeff of [place] 13.1, Plt Count 215, MPV 9.1, Immature Gran % (Auto) 0.200, Neut % (Auto) 57.4, Lymph % (Auto) 30.1, [place] % (Auto) 8.0, Eos % (Auto) 3.6, Baso % (Auto) 0.7, Absolute Neuts (auto) 3.5, Absolute Lymphs (auto) 1.85, Nucleated RBC % 0 02/16/20 05:42: Sodium 143, Potassium 4.0, Chloride 109 H, Carbon Dioxide 27.0, Anion Gap 7, BUN 9, Creatinine 0.80, Estim Creat Clear Calc 117.56, Est GFR (MDRD) Af Amer 136, Est GFR (MDRD) Non-Af 112, BUN/Creatinine Ratio 11.2, Glucose 98, Calcium 8.5, Total Bilirubin 0.80, AST 21, ALT 55, Alkaline Phosphatase 65, Total Protein 6.0 L, Albumin 3.3, Globulin 2.7, Albumin/Globulin Ratio 1.2 02/16/20 05:42: Hemoglobin A1c 5.1 Current Medications Acetaminophen (Tylenol) 650 mg PO Q6H PRN PRN PRN Reason: Pain Score 1-10/Temp > 100.7 F Al Hydroxide/Mg Hydroxide (Mylanta Ii) 30 ml PO Q6H PRN PRN PRN Reason: Gastric Burning Albuterol Sulfate (Ventolin Aerosols) 2.5 mg INHALATION Q2H PRN PRN PRN Reason: Shortness of Breath/Wheezing Dextrose (D50w Syringe) 0 gm IV X1 PRN; Protocol PRN Reason: Hypoglycemia Fluoxetine HCl (Prozac) 20 mg PO DAILY [facility] Last Admin: 02/16/20 08:45 Dose: 20 mg Documented by: Folic Acid (Folic Acid) 1 mg PO DAILY@0800 [facility] Stop: 02/18/20 08:01 Last Admin: 02/16/20 08:45 Dose: 1 mg Documented by: Glucagon () 1 mg IM .X1 PRN PRN Reason: Hypoglycemia Guaifenesin (Robitussin) 20 ml PO Q4H PRN PRN PRN Reason: COUGH Hydralazine HCl (Apresoline Iv) 10 mg IV Q4H PRN PRN PRN Reason: SBP > 160 Hydroxyzine Pamoate (Vistaril Pamoate Capsule) 25 mg PO TID PRN PRN PRN Reason: ANXIETY Last Admin: 02/15/20 18:45 Dose: 25 mg Documented by: Sodium Chloride () 1,000 mls @ 125 mls/hr IV .Q8H [facility] Last Admin: 02/16/20 11:30 Dose: 125 mls/hr Documented by: Ibuprofen (Motrin) 800 mg PO Q8H PRN PRN PRN Reason: Pain Score 1-10/10 Last Admin: 02/16/20 09:48 Dose: 800 mg Documented by: Lorazepam (Ativan) 1 mg IV PRN PRN PRN Reason: seizure activity Lorazepam (Ativan) 2 mg PO Q2H PRN PRN; Protocol PRN Reason: CIWA score > 8 but <15 Lorazepam (Ativan) 2 mg PO UD PRN; Protocol PRN Reason: CIWA score >/=15. Lorazepam (Ativan) 2 mg IV Q2H PRN PRN; Protocol PRN Reason: CIWA score > 8 but <15 Lorazepam (Ativan) 2 mg IV UD PRN; Protocol PRN Reason: CIWA score >/=15. Magnesium Hydroxide (Milk Of Magnesia) 30 ml PO DAILY PRN PRN PRN Reason: Constipation Meclizine HCl (Antivert) 25 mg PO TID PRN PRN PRN Reason: Dizziness/Vertigo Melatonin (Melatonin) 3 mg PO QHS PRN PRN PRN Reason: INSOMNIA Multivitamins/Minerals (Multivitamin With Minerals (Bkc)) [facility] Last Admin: 02/16/20 08:44 Dose: 1 tablet Documented by: Nicotine (Nicoderm Cq (Pbkc)) 21 mg TRANSDERM. DAILY [facility] Last Admin: 02/16/20 08:45 Dose: 21 mg Documented by: Ondansetron HCl (Zofran) 4 mg IV Q8H PRN PRN PRN Reason: NAUSEA/VOMITING Prochlorperazine Edisylate (Compazine Iv) 5 mg IV Q4H PRN PRN PRN Reason: Breakthrough nausea/vomiting Psyllium Hydrophilic Mucilloid (Metamucil) 1 packet PO DAILY PRN PRN PRN Reason: Constipation [facility]aban ([facility]to) [facility] Last Admin: 02/16/20 08:45 Dose: 15 mg Documented by: Senna/Docusate Sodium (Senokot-S, Marlene-Colace) 2 tablet PO BID PRN PRN PRN Reason: Constipation Sodium Chloride () 10 - 40 ml IV UD PRN PRN Reason: SALINE FLUSH Last Admin: 02/15/20 20:01 Dose: 10 ml Documented by: Thiamine HCl (Vitamin B1) [facility] Stop: 02/18/20 08:01 Last Admin: 02/16/20 08:45 Dose: 100 mg Documented by: Throat Lozenges (Cepacol Sore Throat Lozenge) 1 lozenge MUCOUS MEM Q2H PRN PRN PRN Reason: SORE THROAT Discharge Activity: May Not Drive Weight Bearing Status: Full weight bearing Call your doctor if you observe: Fever of 101 or Higher, Shortness of breath, Dizziness, Fainting spells, Chest pain, Increased palpitations (irregular heartbeat), Uncontrolled pain Home Medications: Medications to take at Discharge Fluoxetine [Prozac] 20 mg PO DAILY 02/15/20 Hydroxyzine HCl 25 mg PO TID PRN 02/15/20 Meclizine HCl 25 mg PO TID PRN 02/15/20 Rivaroxaban [Xarelto] 15 mg PO BID 02/15/20 Primary Care Physician: Lupillo Dia MD [Primary Care Provider] - Please follow up with your Primary Care Physician in: 1 week. Disposition: Home Minutes spent on discharge:: 27 Medical Necessity - Tobacco Use Smoking Status: Former smoker Tobacco Use: Chew Meaningful Use Info Meaningful Use Diagnoses (Choose all that apply): None applicable Inpatient E&M: 17689 Disch Hosp
[2020-02-17 21:03] LABS: Methyl Alcohol Negative % (0.000-0.010)
== END 2020-02-16 17:44 | disposition home or self-care (01) | DRG 53 ==
LOC: ED 16:11 → PCU 17:32
PROVIDERS: Admitting Provider Family Medicine; Emergency Provider Emergency Medicine; PCP Family Medicine; Visit Provider Hospitalist
DX: R56.9 Unspecified convulsions (principal); I82.431 Acute embolism and thrombosis of right popliteal vein; F32.9 Major depressive disorder, single episode, unspecified; F41.9 Anxiety disorder, unspecified; F43.12 Post-traumatic stress disorder, chronic; X58.XXXA Exposure to other specified factors, initial encounter; Y93.9 Activity, unspecified; Y92.9 Unspecified place or not applicable; Y99.9 Unspecified external cause status; F10.21 Alcohol dependence, in remission; F17.220 Nicotine dependence, chewing tobacco, uncomplicated; E66.9 Obesity, unspecified; Z68.36 Body mass index [BMI] 36.0-36.9, adult; Z79.01 Long term (current) use of anticoagulants; Z79.899 Other long term (current) drug therapy; Z86.711 Personal history of pulmonary embolism; Z86.718 Personal history of other venous thrombosis and embolism
CPT/HCPCS: 36415; 70553; 80048; 80053; 80307; 80320; 81001; 83036; 83735; 84100; 84443; 85025; 95819; 97802; 99285; A9575; J7030; A4216; G0480

== ENCOUNTER 2020-02-17 11:12 | Emergency (ER) | payer MEDICAID, SELFPAY ==
[2020-02-15 18:04] VITALS: BMI 35.4
[2020-02-17 11:17] VITALS: BP 142/107; PULSE 93; RESP 14; TEMP 37.6; O2SAT 99; BMI 36.3
[2020-02-17 12:09] LABS: Absolute Lymphocyte Count 1.28 X10^3/uL (0.83-4.51); Absolute Neutrophil Count 5.3 X10^3/uL (2.0-7.7); Basophil# 0.04 X10^3/uL; Basophil% 0.6 % (0-1); Eosinophil# 0.12 X10^3/uL; Eosinophils% 1.7 % (0-5); Hematocrit 48.1 % (40-54); Hemoglobin 16.7 g/dL (13.0-16.5); Lymphocyte # 1.28 X10^3/ul (4.0); Lymphocyte % 17.7 % (19-41); Mean Corp Hgb Conc 34.7 g/dL (32-36); Mean Corpuscular Hgb 29.5 pg (27.0-32.0); Mean Corpuscular Volume 84.8 fL (80-94); Mean Platelet Vol. 9.7 fl (6.2-12.0); Monocyte# 0.47 X10^3/uL; Monocyte% 6.5 % (0-10); NRBC Flagged by Analyzer 0 % (0-5); Neutrophil % 73.2 % (47-70); Platelet Count 272 K/mm3 (150-450); RBC Distribution Width CV 13.1 % (11.6-14.6); RBC Distribution Width SD 40.5 fl (35.1-43.9); Red Blood Count 5.67 M/mm3 (4.6-6.2); White Blood Count 7.2 K/mm3 (4.4-11.0)
[2020-02-17 12:25] LABS: ALB/GLOB Ratio 1.2 RATIO (0.9-2.4); AST(SGOT) 22 U/L (15-37); Alanine Aminotransfer ALT/SGPT 63 U/L (16-61); Alkaline Phosphatase 75 U/L (45-117); Anion Gap 6 (5-15); BUN 7 mg/dL (7-18); BUN/Creat Ratio 8.4 RATIO (10-20); Calcium,Total 9.1 mg/dL (8.5-10.1); Chloride 107 mmol/L (98-107); Creatinine, Serum 0.83 mg/dL (0.70-1.30); EST Glomerular Filtration Rate 108 mL/min (>60); Est Glom Filt Rate - Afr Amer 131 mL/min (>60); Estimated Creatinine Clearance 113.31 ml/min; Globulin 3.2 g/dL (2.2-4.2); Glucose 99 mg/dL (74-106); Potassium 3.9 mmol/L (3.5-5.1); Protein, Total 7.2 g/dL (6.4-8.2); Sodium Level 141 mmol/L (136-145)
--- NOTE | 2020-02-17 12:27 | ED.VIS.GEN ---
History of Present Illness Chief Complaint: Seizure Informant: Patient Onset: Today, - - Patient recently seen and discharged in the hospital. He had an EEG which was negative. He was not started on anticonvulsants. Records for that admission were reviewed. Context: Sudden Onset Timing: Intermittent Quality: Patient has no recall of what occurred Location: [facility] Current Severity: Mild - Patient is confused and may represent postictal state Maximum Severity: - - Unknown Worsened by: Unknown Relieved by: Nothing Associated Symptoms: Patient has no recall Narrative: Patient is a 39-year-old male with reported seizure activity. He has no known history of seizure disorder. He does admit to drinking. He was recently admitted for seizure work-up. He was diagnosed with seizure. Because his EEG was negative he was not started on anticonvulsants. He denies illicit drug use. Will review prior records to determine if this is an accurate statement. He denies headache. He denies visual, ocular auditory symptoms. No trouble speech or swallowing. He denies cardiac respiratory symptoms. He denies nausea or vomiting. He denies myalgias or arthralgias. He denies numbness or tingling in his arms or legs. Prior similar symptoms: Yes Recent Illness/Hospitalization: Yes - Past Medical History (1) Right leg DVT Status: Acute (2) Seizure Status: Acute (3) Alcoholism Status: Chronic (4) Nicotine abuse Status: Chronic (5) PTSD (post-traumatic stress disorder) Status: Chronic Past Medical History - Allergies and Home Meds Allergies/Adverse Reactions: Allergies coconut Allergy (Verified 02/17/20 11:15) PT UNSURE OF REACTION Primary Care Physician: Lupillo Dia MD [Primary Care Provider] - Prior records reviewed: Yes Surgical History: - - ankle pins Lives: Alone Smoking Status: Former smoker Alcohol: Occasional Drugs: Marijuana - Family History Maternal Family History: Reports: Unknown - adopted Paternal Family History: Reports: Unknown - adopted Review of Systems ROS: Unable to Obtain - Patient does not recall. Will document what he is able to tell me at this time General: Denies: Fever Eyes: Denies: Visual changes - bilaterally, Blurred Vision - bilaterally, Diplopia ENT: Reports: - - Has decreased hearing or ringing in his ears. Denies: Bilateral ear pain, Rhinorrhea, Sore throat Cardiovascular: Denies: Chest pain Respiratory: Denies: Dyspnea, Cough, Dyspnea on exertion Gastrointestinal: Denies: Nausea, Vomiting Musculoskeletal: Denies: Myalgias, Arthralgias, Neck pain, Back pain Skin: Denies: Rash, Wounds Neurological: Denies: Headache, Parasthesia, Numbness Psych: Denies: Depression, Anxiety Endocrine: Denies: Polyuria, Polydipsia Hematologic: Denies: Easy bruising, Easy bleeding Allergy: Denies: Uticaria, Swelling of the mouth Physical Exam Vital Signs/Narrative: Vital Signs Temp Pulse Resp BP Pulse Ox 02/17/20 11:17 99.7 F H 93 14 142/107 H 99 Inital Vital Signs reviewed: Yes General: Well nourished, Well developed, Obese Head: Normocephalic, Atraumatic Eyes: Perrl, EOMI. Negative for: Pale conjunctiva, Scleral icterus ENT: Moist mucous membranes, No rhinorrhea, TM's clear Neck: Supple, Nontender, No lymphadenopathy, No JVD Cardiovascular: Regular rate, Regular rhythm, No murmurs, Normal S1, Normal S2 Respiratory: No distress, CTA bilaterally, Chest nontender Abdomen: Soft, Nontender, Nondistended, Normal bowel sounds Back: Nontender, Normal Inspection Extremities: Nontender, No edema Skin: Normal color, No rash Neurological: Cranial nerves II-XII grossly intact, Normal Strength, Normal Sensation, Normal DTR, Confused, Disoriented. Negative for: Alert, Oriented x3 Psychological: - - Affect is flat Diagnostic/Tx/Re-eval Differential is idiopathic seizure disorder, alcohol withdrawal, conversion reaction, drug use. Basic blood work was obtained. Once patient is more alert will re-interview. And will determine why anticonvulsants were not started during his last admission. Laboratory Results 02/17/20 02/17/20 02/17/20 12:00 12:00 12:00 WBC 7.2 RBC 5.67 Hgb 16.7 H Hct 48.1 MCV 84.8 MCH 29.5 MCHC 34.7 RDW Std Deviation 40.5 RDW Coeff of [place] 13.1 Plt Count 272 MPV 9.7 Immature Gran % (Auto) 0.300 Neut % (Auto) 73.2 H Lymph % (Auto) 17.7 L [place] % (Auto) 6.5 Eos % (Auto) 1.7 Baso % (Auto) 0.6 Absolute Neuts (auto) 5.3 Absolute Lymphs (auto) 1.28 Nucleated RBC % 0 Sodium 141 Potassium 3.9 Chloride 107 Carbon Dioxide 28.0 Anion Gap 6 BUN 7 Creatinine 0.83 Estim Creat Clear Calc 113.31 Est GFR (MDRD) Af Amer 131 Est GFR (MDRD) Non-Af 108 BUN/Creatinine Ratio 8.4 L Glucose 99 Calcium 9.1 Total Bilirubin 0.80 AST 22 ALT 63 H Alkaline Phosphatase 75 Total Protein 7.2 Albumin 4.0 Globulin 3.2 Albumin/Globulin Ratio 1.2 Ethyl Alcohol < 3.0 Patient was loaded with 1000 mg of Keppra. He was discharged prescription for Keppra and given a list of neurologists that are on his insurance plan since there are no local neurologist in the [facility]. - Medical Decision Making Patient presents after reported seizure and presently is postictal state. Concern he had a generalized tonic-clonic seizure. He is on no anticonvulsants. Old records were reviewed revealed the EEG which was negative. He also had MRI. The impression of the MRI will be attached to the end of this discussion. MRI/Brain W/WO Contrast IMPRESSION: Tiny nonspecific focal area of nodular enhancement in left frontal parietal region of indeterminate etiology and clinical significance. Would recommend limited repeat study without contrast utilizing thinner cuts through this area for further assessment. 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 Clinical correlation recommended Electronically Signed: Cornel Hess MD at 19:57 EDT , Service support , ED Disposition - Plan for ED Patient: Disposition: Home or Assisted Living Diagnosis: Seizure Prescriptions: Levetiracetam [Keppra] 500 mg PO BID #60 tab Transmission [facility]: [facility] Referrals: Lupillo Dia MD [Primary Care Provider] - 3-5 Days
[2020-02-17 12:46] LABS: Alcohol, Blood (Medical)-Serum < 3.0 mg/dL
[2020-02-17] MEDS: levETIRAcetam IV 1,000 MG/100 ML BAG 400 MG IV (13:58)
--- NOTE | 2020-02-17 14:50 | ED.RN ---
spoke with pt's sig other and updated. sig other concerned that was more a mental break and that [facility] [place] [facility] for [facility] eval. also concerned and wanting the prozac to be dc'd since symptoms really started getting bad. aware of plan to observe here for few hours. albert cantor also in to see pt and discussing freq admisions with pt and
--- NOTE | 2020-02-17 14:56 | CM.ED ---
Social Work Consult: Resources Informant: Dr. Hernandez. Dr. Hernandez requesting for this social insurance administrator to provide patient with list of in-network Neurologist for patient. This social insurance administrator able to find list of Neurologist that are in-network with patient insurance via [employer] website. This social insurance administrator met with patient in room. Introduced self as well as social insurance administrator role. Patient agreeable to speaking with this social insurance administrator. Patient laying in bed with eyes closed when this social insurance administrator asked patient questions patient would often respond with I don't know or they told me this. Patient clarifying they are nursing staff. Patient stating my brain is not working right. Patient stating to be aware of where patient is, the year, and season but only because they informed patient of this information. Patient stating to not be sure how patient go to the hospital or if patient has family/support. Patient stating they say I have PTSD. Per nursing staff speaking with patient spouse, [facility] and the [facility] is currently [facility]. This social insurance administrator attempting to provide patient with list of Neurologist as patient is not sure if patient currently sees a Neurologist. Patient did not move in bed or motion to take list of Neurologist. This social insurance administrator put list of Neurologist with patient paperwork/chart and updated nursing of above information. Updated Dr. Hernandez on above information. Dr. Hernandez stating to want to observe patient further and then make further decisions. Dr. Hernandez is not requesting for a mental health evaluation at this time. Will continue to follow as needed. [place], [place]
[2020-02-17 15:24] VITALS: BP 134/86; PULSE 75
[2020-02-17 16:40] VITALS: BP 124/80; PULSE 67; RESP 20; TEMP 36.5; O2SAT 94
--- NOTE | 2020-02-17 16:46 | ED.RN ---
pt still not acknowledging that knows who sig other is. dc in and sig other called and aware. will be here to get pt in 15min. worried over this being a mental break and wondering if [facility]?
--- NOTE | 2020-02-17 17:14 | ED.RN ---
pt assisted in getting dressed. up to wc with slow gait. generalized nonspecific weakness continues. sig other at door and crisis hotline and info sheet given as per albert cantor.
== END 2020-02-17 17:15 | disposition home or self-care (01) ==
PROVIDERS: Emergency Provider Emergency Medicine; PCP Family Medicine
DX: R56.9 Unspecified convulsions (principal); E66.9 Obesity, unspecified; F43.10 Post-traumatic stress disorder, unspecified; F10.20 Alcohol dependence, uncomplicated; Z86.718 Personal history of other venous thrombosis and embolism; Z79.01 Long term (current) use of anticoagulants; Z79.899 Other long term (current) drug therapy; Z87.891 Personal history of nicotine dependence
CPT/HCPCS: 80053; 80320; 85025; 96365; 96366; 99285; J7050; A4216; G0480